=== PATIENT | female | born 1990 | race Caucasian/White ===

== ENCOUNTER 2017-03-28 10:15 | Emergency (ER) | payer OTHER ==
[2017-03-28 11:03] LABS: BILIRUBIN NEGATIVE (NEGATIVE); BLOOD 3+ Ery/uL (NEGATIVE); COLOR YELLOW (YELLOW); GLUCOSE (U) NORMAL (NORMAL); KETONE (U) NEGATIVE (NEGATIVE); LEUKOCYTES NEGATIVE Leu/uL (NEGATIVE); NITRITE NEGATIVE (NEGATIVE); PROTEIN NEGATIVE (NEGATIVE); UROBILINOGEN 0.2 mg/dL (0.2-1.0)
[2017-03-28 11:03] LABS: BASOPHIL 0.4 % (0-2); EOSINOPHIL 2.2 % (0-5); LYMPHOCYTE 29.3 % (15-48); MCH 29.5 pg (25.0-31.0); MCHC 34.1 g/dL (32.0-36.0); MCV 86.3 fL (78.0-100.0); MONOCYTE 5.7 % (0-12); MPV 8.7 fL (6.0-9.5); NEUTROPHIL 62.4 % (41-80); PLT 283 K/uL (150-400); RBC 4.75 M/uL (4.20-5.40); RDW 13.2 % (11.5-14.0); WBC 6.8 K/uL (4.0-10.5)
[2017-03-28 11:04] LABS: CLARITY HAZY (CLEAR)
[2017-03-28 11:19] LABS: ALBUMIN 4.6 g/dL (3.5-5.0); BILIRUBIN - TOTAL 0.4 mg/dL (0.1-1.0); CREATININE 0.6 mg/dL (0.5-1.0); POTASSIUM 3.6 mmol/L (3.5-5.1); TOTAL PROTEIN 7.6 g/dL (6.4-8.3)
== END 2017-03-28 13:38 | disposition home or self-care (01) ==
LOC: FER 10:15
PROVIDERS: Emergency Medicine
DX: O20.0 Threatened abortion (principal); Z3A.01 Less than 8 weeks gestation of pregnancy
CPT/HCPCS: 36415; 76817; 80053; 81003; 84702; 85025; 86900; 86901